=== PATIENT | female | born 1990 | race Caucasian/White ===

== ENCOUNTER 2017-02-06 11:53 | Emergency (ER) | payer OTHER ==
--- NOTE | 2017-02-06 15:39 | ED ORDER SUMMARY ---
..... Patient: VERONICA HILLMAN OrderSheet [facility] VisitID: [id number] [address] [place] [address] 26y, F Registration Date/Time: 02/06/2017 ORDER SHEET Weight: 72.5 kg (stated) Allergies: Penicillins, Sulfa Antibiotics GENERAL ORDERS: CBC w Diff Urgent (12:55 02/06/2017 MWinterer R.N. per protocol) (Ack 12:56 KHoerner) (13:09 KHoerner) CMP Urgent (12:55 02/06/2017 MWinterer R.N. per protocol) (Ack 12:56 KHoerner) (13:09 KHoerner) UA-Culture if indicated Urgent (12:56 02/06/2017 MWinterer R.N. per protocol) (Ack 12:57 KHoerner) (13:36 MWinterer R.N.) Culture, Strep Screen Urgent (13:08 02/06/2017 EKoroleva P.A.-C) (Ack 13:10 KHoerner) (13:36 MWinterer R.N.) Culture, Strep Screen Urgent (13:28 02/06/2017 EKoroleva P.A.-C) (Cancelled: Other13:33 MWinterer R.N.) Monoscreen Urgent (13:28 02/06/2017 EKoroleva P.A.-C) (13:35 KHoerner) PCT (Procalcitonin) Urgent (13:29 02/06/2017 EKoroleva P.A.-C) (13:35 KHoerner) Vitals (14:49 02/06/2017 EKoroleva P.A.-C) (14:58 MWinterer R.N.) MEDICATION ORDERS: Tylenol PO 650 mg (NOW) (13:08 02/06/2017 EKoroleva P.A.-C) (Ack 13:18 JBoardley R.N.) (13:22 JBoardley R.N.) Motrin PO 600 mg (NOW) (13:08 02/06/2017 EKoroleva P.A.-C) (Ack 13:18 Wendie R.N.) (13:22 Wendie R.N.) Dexamethasone PO 6 mg (NOW) (14:49 02/06/2017 José Jauregui) (Ack 14:58 MWinterer R.N.) (15:06 MWinterer R.N.) IV FLUIDS: IV NS : initial bolus 1000 mL (1000 mL/hr), then 10 mL/hr for X1 (NOW); Omar (15:02 02/06/2017 José Jauregui) (15:07 MWinterer R.N.) ORDER SHEET NOTES: [Electronically signed by Farida Good P.A.-C (16:26 02/06/2017)] [Electronically signed by Yahaira Enciso R.N. (17:24 02/06/2017)] [Electronically locked/signed by Yahaira Enciso R.N. (17:24 02/06/2017)]
--- NOTE | 2017-02-06 15:39 | ED NURSING NOTES ---
Clinical Report - Nurses [facility] [address] [place] [address] 02/06/2017 11:53 Patient: VERONICA HILLMAN TRIAGE Acuity: LEVEL 3. Chief Complaint: SORE THROAT and (body aches). Alert. No acute distress. SEPSIS SCREEN: Sepsis Screen. Negative (no infection suspected/documented). --12:10 Yahaira Enciso R.N. 12:05 02/06/17. BP: 127/78. HR: 114. RR: 20. O2 saturation: 100% on room air. Temp: 100.3 F (oral). Pain level now: 05/11. --12:10 Yahaira Enciso R.N. Weight: 72.5 kg stated. Height/Length: 64 inches Per Patient. BMI: 27.5. --12:06 Yahaira Enciso R.N. Medications None. --12:06 Yahaira Enciso R.N. Medication/allergy information source: the patient. --12:10 Yahaira Enciso R.N. Allergies Penicillins.(Anaphylaxis) Sulfa Antibiotics.(Anaphylaxis) --12:06 Yahaira Enciso R.N. History Arrived by private vehicle. Historian: patient. Accompanied by mother. Primary physician (none). Onset. (6 days ago). She has no dental appointment scheduled. Treatment [employer]: Took Tylenol, ibuprofen and Benadryl. SOCIAL HX: Never smoker. History of heavy drug use: methamphetamines, marijuana. Recently used drugs days ago. No alcohol use. FALL RISK ASSESSMENT: Fall risk assessment completed. No fall risk identified. NUTRITIONAL RISK ASSESSMENT: The nutritional risk assessment revealed no deficiencies. FUNCTIONAL ASSESSMENT: Functional assessment: no impairments noted. LEARNING NEEDS ASSESSMENT: The learning needs assessment revealed no barriers. SKIN INTEGRITY ASSESSMENT: Skin integrity risk assessment completed. No skin integrity risk identified. --12:10 Yahaira Enciso R.N. PROBLEMS: Pharyngitis. Strep Throat. Dental Abscess. Dental Pain. Nephrolithiasis. Myofascial Strain. Dental Caries. Dental Trauma. LNMP - Last Normal Menstrual Period. --12: Yahaira Enciso R.N. ADDITIONAL SURGERIES: Appendectomy. . Nephrostomy. --12: Yahaira Enciso R.N. Assessment GENERAL / NEURO / PSYCH: Alert. Oriented X 4. Appears in no acute distress. Stephie Coma Scale: 15- eyes open spontaneously (4); best verbal response- oriented x 4 (5); best motor response- obeys commands (6). Patient appears calm and cooperative. RESPIRATORY: Respirations not labored. CVS: Capillary refill less than 2 seconds. GI / : Abdomen soft. SKIN: Mucous membranes are pink. Skin is warm and dry. --12:10 Yahaira Enciso R.N. Interventions ID band on patient. To treatment room. --12: Yahaira Enciso R.N. PHYSICAL ASSESSMENT 12:02/06/17. Ambulatory to room. GENERAL / NEURO / PSYCH: Alert. Oriented X 4. Appears in no acute distress. HEENT: Pupils equal, round and reactive to light. Voice within normal limits. No dental injury noted. Mucous membranes are pink. RESPIRATORY: Respirations not labored. CVS: Capillary refill less than 2 seconds. SKIN: Skin is warm and dry. --12: Yahaira Enciso R.N. NURSING PROGRESS NOTES 12:02/06/17. Patient gowned. Reassurance given. Two patient identifiers checked. Checked patient name and birthdate. Call light placed in reach. Side rails up x 1. Patient ready for evaluation- ED physician notified. --12: Yahaira Enciso R.N. 12:02/06/2017 Site #1 started via IV in the right antecubital space with an 20g angiocath, with aseptic technique and good blood return; one attempt. Blood drawn: rainbow set and cultures x1. Labeled in the presence of the patient and sent to the lab. Saline lock flushed with 10 mL saline (lactate drawn). --12: Yahaira Enciso R.N. 13:22 02/06/2017 Tylenol (Acetaminophen) PO 650 mg given. Allergies verified and confirmed 5 rights. --13:22 Tito Espinal R.N. 13:02/06/2017 Motrin PO 600 mg given. Confirmed 5 rights. --13:22 Tito Espinal R.N. 15:00 02/06/17. BP: 123/66. HR: 107. RR: 18. O2 saturation: 100%. Temp: 99.1 F (oral). Pain level now: 7/10. --15:01 Yahaira Enciso R.N. 15:06 02/06/2017 Dexamethasone (Dexamethasone) PO 6 mg given. Allergies verified and confirmed 5 rights. --15:06 Yahaira Enciso R.N. 15:07 02/06/2017 Started bag #1 1000 mL IV Fluids IV NS (Saline); at 1000 mL/hr over 1 hour(s) via site #1 via IV pump. Allergies verified and confirmed 5 rights. IV patency established. IV site checked: no pain, redness, or swelling. IV flushed thoroughly pre- and post-medication administration. --15:07 Yahaira Enciso R.N. 16:02/06/2017 Site #1 removed upon discharge. Catheter intact. Manual pressure and bandage applied. --16:15 Yahaira Enciso R.N. 16:13 02/06/2017 IV Fluids IV NS Discontinued: bag #1 infused upon discharge. Total amount infused: 1000 mL. IV patency established. IV site checked: no pain, redness, or swelling. IV flushed thoroughly. --16:13 Yahaira Enciso R.N. DISPOSITION / DISCHARGE Departure time: 16:Feb 06 2017. Condition at departure: improved and stable. No learning barriers present. Discharge instructions provided and reviewed with the patient. Reviewed medication(s) side effects, precautions, dosing and course information. Prescription(s) given to the patient. Patient verbalized understanding. Written instructions provided in Hebrew. The patient was discharged by the physician transportation assistant. She was discharged home and accompanied by parent. She left the Emergency Department ambulatory and via private vehicle. Parent driving. --17:21 Yahaira Enciso R.N. 17:19 02/06/17. BP: 122/77. HR: 97. RR: 18. O2 saturation: 100%. Temp: 98.3 F (oral). Pain level now: 0/10. --17:21 Yahaira Enciso R.N. Locked/Released at 02/06/2017 17:24 by Yahaira Enciso R.N.
--- NOTE | 2017-02-06 15:39 | ED NURSING NOTES ---
Clinical Report - Nurses [facility] [address] [place] [address] 02/06/2017 11:53 Patient: VERONICA HILLMAN TRIAGE Acuity: LEVEL 3. Chief Complaint: SORE THROAT and (body aches). Alert. No acute distress. SEPSIS SCREEN: Sepsis Screen. Negative (no infection suspected/documented). --12:10 Yahaira Enciso R.N. 12:05 02/06/17. BP: 127/78. HR: 114. RR: 20. O2 saturation: 100% on room air. Temp: 100.3 F (oral). Pain level now: 05/11. --12:10 Yahaira Enciso R.N. Weight: 72.5 kg stated. Height/Length: 64 inches Per Patient. BMI: 27.5. --12:06 Yahaira Enciso R.N. Medications None. --12:06 Yahaira Enciso R.N. Medication/allergy information source: the patient. --12:10 Yahaira Enciso R.N. Allergies Penicillins.(Anaphylaxis) Sulfa Antibiotics.(Anaphylaxis) --12:06 Yahaira Enciso R.N. History Arrived by private vehicle. Historian: patient. Accompanied by mother. Primary physician (none). Onset. (6 days ago). She has no dental appointment scheduled. Treatment [employer]: Took Tylenol, ibuprofen and Benadryl. SOCIAL HX: Never smoker. History of heavy drug use: methamphetamines, marijuana. Recently used drugs days ago. No alcohol use. FALL RISK ASSESSMENT: Fall risk assessment completed. No fall risk identified. NUTRITIONAL RISK ASSESSMENT: The nutritional risk assessment revealed no deficiencies. FUNCTIONAL ASSESSMENT: Functional assessment: no impairments noted. LEARNING NEEDS ASSESSMENT: The learning needs assessment revealed no barriers. SKIN INTEGRITY ASSESSMENT: Skin integrity risk assessment completed. No skin integrity risk identified. --12:10 Yahaira Enciso R.N. PROBLEMS: Pharyngitis. Strep Throat. Dental Abscess. Dental Pain. Nephrolithiasis. Myofascial Strain. Dental Caries. Dental Trauma. LNMP - Last Normal Menstrual Period. --12: Yahaira Enciso R.N. ADDITIONAL SURGERIES: Appendectomy. . Nephrostomy. --12: Yahaira Enciso R.N. Assessment GENERAL / NEURO / PSYCH: Alert. Oriented X 4. Appears in no acute distress. Stephie Coma Scale: 15- eyes open spontaneously (4); best verbal response- oriented x 4 (5); best motor response- obeys commands (6). Patient appears calm and cooperative. RESPIRATORY: Respirations not labored. CVS: Capillary refill less than 2 seconds. GI / : Abdomen soft. SKIN: Mucous membranes are pink. Skin is warm and dry. --12:10 Yahaira Enciso R.N. Interventions ID band on patient. To treatment room. --12: Yahaira Enciso R.N. PHYSICAL ASSESSMENT 12:02/06/17. Ambulatory to room. GENERAL / NEURO / PSYCH: Alert. Oriented X 4. Appears in no acute distress. HEENT: Pupils equal, round and reactive to light. Voice within normal limits. No dental injury noted. Mucous membranes are pink. RESPIRATORY: Respirations not labored. CVS: Capillary refill less than 2 seconds. SKIN: Skin is warm and dry. --12: Yahaira Enciso R.N. NURSING PROGRESS NOTES 12:02/06/17. Patient gowned. Reassurance given. Two patient identifiers checked. Checked patient name and birthdate. Call light placed in reach. Side rails up x 1. Patient ready for evaluation- ED physician notified. --12: Yahaira Enciso R.N. 12:02/06/2017 Site #1 started via IV in the right antecubital space with an 20g angiocath, with aseptic technique and good blood return; one attempt. Blood drawn: rainbow set and cultures x1. Labeled in the presence of the patient and sent to the lab. Saline lock flushed with 10 mL saline (lactate drawn). --12: Yahaira Enciso R.N. 13:22 02/06/2017 Tylenol (Acetaminophen) PO 650 mg given. Allergies verified and confirmed 5 rights. --13:22 Tito Espinal R.N. 13:02/06/2017 Motrin PO 600 mg given. Confirmed 5 rights. --13:22 Tito Espinal R.N. 15:00 02/06/17. BP: 123/66. HR: 107. RR: 18. O2 saturation: 100%. Temp: 99.1 F (oral). Pain level now: 7/10. --15:01 Yahaira Enciso R.N. 15:06 02/06/2017 Dexamethasone (Dexamethasone) PO 6 mg given. Allergies verified and confirmed 5 rights. --15:06 Yahaira Enciso R.N. 15:07 02/06/2017 Started bag #1 1000 mL IV Fluids IV NS (Saline); at 1000 mL/hr over 1 hour(s) via site #1 via IV pump. Allergies verified and confirmed 5 rights. IV patency established. IV site checked: no pain, redness, or swelling. IV flushed thoroughly pre- and post-medication administration. --15:07 Yahaira Enciso R.N. 16:02/06/2017 Site #1 removed upon discharge. Catheter intact. Manual pressure and bandage applied. --16:15 Yahaira Enciso R.N. 16:13 02/06/2017 IV Fluids IV NS Discontinued: bag #1 infused upon discharge. Total amount infused: 1000 mL. IV patency established. IV site checked: no pain, redness, or swelling. IV flushed thoroughly. --16:13 Yahaira Enciso R.N. DISPOSITION / DISCHARGE Departure time: 16:Feb 06 2017. Condition at departure: improved and stable. No learning barriers present. Discharge instructions provided and reviewed with the patient. Reviewed medication(s) side effects, precautions, dosing and course information. Prescription(s) given to the patient. Patient verbalized understanding. Written instructions provided in Yakut. The patient was discharged by the physician retail assistant manager. She was discharged home and accompanied by parent. She left the Emergency Department ambulatory and via private vehicle. Parent driving. --17:21 Yahaira Enciso R.N. 17:19 02/06/17. BP: 122/77. HR: 97. RR: 18. O2 saturation: 100%. Temp: 98.3 F (oral). Pain level now: 0/10. --17:21 Yahaira Enciso R.N. Locked/Released at 02/06/2017 17:24 by Yahaira Enciso R.N.
--- NOTE | 2017-02-06 15:39 | ED ORDER SUMMARY ---
..... Patient: VERONICA HILLMAN OrderSheet [facility] VisitID: [id number] [address] [place] [address] 26y, F Registration Date/Time: 02/06/2017 ORDER SHEET Weight: 72.5 kg (stated) Allergies: Penicillins, Sulfa Antibiotics GENERAL ORDERS: CBC w Diff Urgent (12:55 02/06/2017 MWinterer R.N. per protocol) (Ack 12:56 KHoerner) (13:09 KHoerner) CMP Urgent (12:55 02/06/2017 MWinterer R.N. per protocol) (Ack 12:56 KHoerner) (13:09 KHoerner) UA-Culture if indicated Urgent (12:56 02/06/2017 MWinterer R.N. per protocol) (Ack 12:57 KHoerner) (13:36 MWinterer R.N.) Culture, Strep Screen Urgent (13:08 02/06/2017 EKoroleva P.A.-C) (Ack 13:10 KHoerner) (13:36 MWinterer R.N.) Culture, Strep Screen Urgent (13:28 02/06/2017 EKoroleva P.A.-C) (Cancelled: Other13:33 MWinterer R.N.) Monoscreen Urgent (13:28 02/06/2017 EKoroleva P.A.-C) (13:35 KHoerner) PCT (Procalcitonin) Urgent (13:29 02/06/2017 EKoroleva P.A.-C) (13:35 KHoerner) Vitals (14:49 02/06/2017 EKoroleva P.A.-C) (14:58 MWinterer R.N.) MEDICATION ORDERS: Tylenol PO 650 mg (NOW) (13:08 02/06/2017 EKoroleva P.A.-C) (Ack 13:18 JBoardley R.N.) (13:22 JBoardley R.N.) Motrin PO 600 mg (NOW) (13:08 02/06/2017 EKoroleva P.A.-C) (Ack 13:18 Wendie R.N.) (13:22 Wendie R.N.) Dexamethasone PO 6 mg (NOW) (14:49 02/06/2017 José Jauregui) (Ack 14:58 MWinterer R.N.) (15:06 MWinterer R.N.) IV FLUIDS: IV NS : initial bolus 1000 mL (1000 mL/hr), then 10 mL/hr for X1 (NOW); Omar (15:02 02/06/2017 José Jauregui) (15:07 MWinterer R.N.) ORDER SHEET NOTES: [Electronically signed by Farida Good P.A.-C (16:26 02/06/2017)] [Electronically signed by Yahaira Enciso R.N. (17:24 02/06/2017)] [Electronically locked/signed by Yahaira Enciso R.N. (17:24 02/06/2017)]
--- NOTE | 2017-02-06 15:39 | ED CLINICAL REPORT ---
Clinical Report - Physicians/Mid Levels [facility] [address] [place] [address] 02/06/2017 11:53 Patient: VERONICA HILLMAN Time Seen: 13:29 Feb 06 2017. Arrived- By private vehicle. Historian- patient. HISTORY OF PRESENT ILLNESS Chief Complaint: SORE THROAT. This started just prior to arrival and is still present. Pain described as mild. The patient has had a sore throat. (ore throat over the last 3 days with associated fevers and chills, patient home has been taking Benadryl, Tylenol and Motrin. No sick contacts. Denies any sick contacts with mono. Patient denies smoking. Patient denies hemoptysis. Denies any recent foreign travel. Patient denies cough.). Similar symptoms previously: REVIEW OF SYSTEMS No fever, cough, difficulty breathing, diarrhea or headache. No enlarged lymph nodes. All systems otherwise negative, except as recorded above. PAST HISTORY Problems: Pharyngitis. Strep Throat. Dental Abscess. Dental Pain. Nephrolithiasis. Myofascial Strain. Dental Caries. Dental Trauma. LNMP - Last Normal Menstrual Period. Additional Surgeries: Appendectomy. . Nephrostomy. Medications: None. Allergies: Penicillins.(Anaphylaxis) Sulfa Antibiotics.(Anaphylaxis). SOCIAL HISTORY Never smoker. History of drug use: cocaine, methamphetamines. ADDITIONAL NOTES The nursing notes have been reviewed. PHYSICAL EXAM Vital Signs: 02/06/2017 12:05 BP: 127/78. HR: 114. RR: 20. O2 saturation: 100%. Temp: 100.3 F. Pain level now: 8/10. Appearance: Alert. Head: Normal external inspection. ENT: Nose normal. Pharynx normal. Lips normal. No trismus present. Uvula midline. No tonsillar exudate or peritonsillar mass. Neck: Mild left anterior neck and mild left posterior neck lymphadenopathy present. No adenopathy. CVS: Normal heart rate and rhythm. Heart sounds normal. Skin: No rash. LABS, X-RAYS, AND EKG Laboratory Tests: UA-Culture if indicated: (JENA: 02/06/2017 13:30) ( [facility] 02/06/2017 14:09) Final results Test Result Flag Units (Reference) URINE COLOR YELLOW URINE APPEARANCE CLEAR URINE GLUCOSE NEGATIVE (NEGATIVE) URINE BILIRUBIN NEGATIVE (NEGATIVE) URINE KETONE NEGATIVE (NEGATIVE) URINE SPECIFIC GRAVITY 1.015 (1.010-1.030) URINE PH 7.5 (5.0-8.0) URINE PROTEIN NEGATIVE (NEGATIVE) URINE UROBILINOGEN 1.0 EU/dL (0.2-1.0) URINE NITRITE NEGATIVE (NEGATIVE) URINE BLOOD NEGATIVE (NEGATIVE) URINE LEUK ESTERASE NEGATIVE (NEGATIVE) URINE RBC 0-1 rbc/hpf (0-1) URINE WBC 5-10 wbc/hpf (0-1) URINE EPITHELIAL CELLS 0-1 EPI/hpf (0-5) URINE BACTERIA FEW (1+) (NONE SEEN) URINE COMMENT CULT NOT INDICATED URINE CULTURES ARE SET-UP BASED ON THE FOLLOWING CRITERIA:POSITIVE NITRITEPOSITIVE LEUKOCYTE ESTERASEGREATER THAN 10 WHITE BLOOD CELLSMODERATE (2+) OR GREATER BACTERIA Monoscreen: (JENA: 02/06/2017 12:23) ( [facility] 02/06/2017 14:19) Final results Test Result Flag Units (Reference) MONOSCREEN NEGATIVE (NEGATIVE) CBC w Diff: (JENA: 02/06/2017 12:23) ( [facility] 02/06/2017 13:16) Final results Test Result Flag Units (Reference) WHITE BLOOD COUNT 9.2 K/uL (4.5-11.5) RED BLOOD COUNT 4.34 M/uL (4.00-5.20) HEMOGLOBIN 12.5 gm/dL (12.0-16.0) HEMATOCRIT 37.6 % (36.0-46.0) MEAN CELL VOLUME 87 fL (80-100) MEAN CORPUSCULAR HGB 29 pg (26-34) MEAN CORPUSCULAR HGB CONC 33 g/dL (31-37) RED CELL DISTRIBUTION WIDTH 12.6 % (11.6-14.8) PLATELET COUNT 249 K/uL (150-400) NEUTROPHIL % 79.8 H % (50-75) LYMPH % 12.1 L % (25-40) MONO % 7.9 % (3-14) EOSINOPHIL % 0.1 % (0-4) BASOPHIL % 0.1 % (0-2) [id number]: (JENA: 02/06/2017 12:23) ( MsgRcvd 02/06/2017 14:43) Final results Test Result Flag Units (Reference) PROCALCITONIN <0.5 ng/mL (0-0.5) PCT Concentration: Interpretation : Risk/option for action PCT <=0.5 ng/mL : Systemic : Low risk forinfection(sepsis): progression to severeis not likely. : systemic infection.Local bacterial : CAUTION-PCT levelsinfection is : below 0.5 ng/mL do notpossible. : exclude an infection,because localizedinfections (withoutsystemic signs) may beassociated with suchlow levels. If PCT ismeasured very earlyafter a bacterialchallenge (usually <6hours), these valuesmay still be low. Inthis case PCT shouldbe re-assessed 6-24hours later. PCT >0.5 and : Systemic infection: Moderate risk for<= 2 ng/mL : (sepsis) is : progression to severepossible, but : systemic infection.other conditions : The patient should beare known to : closely monitoredelevate PCT. : both clinically andby re-assessing PCTwithin 6-24 hours. PCT > 2 ng/mL : Systemic infection: High risk for(sepsis) is likely: progression to severeunless other : systemic infection.causes are known. : PCT >= 10 ng/mL : Important systemic: High likelihood ofinflammatory : severe sepsis orresponse, almost : septic shock.exclusively due to:severe bacterial :sepsis or septic :shock. : CMP: (JENA: 02/06/2017 12:23) ( MsgRcvd 02/06/2017 13:20) Final results Test Result Flag Units (Reference) GLUCOSE 104 mg/dL (70-110) BUN 7 mg/dL (7-18) CREATININE 0.7 mg/dL (0.6-1.3) Estimated GFR >60 mL/min Estimated GFR- >60 mL/min Note: Persistent reduction over 3 months in eGFR<60 mL/min/1.73 m2 defines CKD. Patients with eGFR values>=60 mL/min/1.73 m2 may also have CKD if evidence ofpersistent proteinuria. Additional information may be foundat www.kidney.org. SODIUM 136 mmol/L (136-145) POTASSIUM 3.9 mmol/L (3.5-5.1) CHLORIDE 100 mmol/L (98-107) CARBON DIOXIDE 25 mmol/L (21-32) CALCIUM 8.1 L mg/dL (8.5-10.1) TOTAL PROTEIN 7.4 g/dL (6.4-8.2) ALBUMIN 3.0 L g/dL (3.3-5.0) BILIRUBIN, TOTAL 0.3 mg/dL (0.0-1.0) ALKALINE PHOSPHATASE 128 H U/L (46-116) AST (SGOT) 49 H U/L (15-37) ALT (SGPT) 92 H U/L (12-78) Culture, Strep Screen: (JENA: 02/06/2017 13:30) ( MsgRcvd 02/06/2017 14:00) Final results Test Result Flag Units (Reference) RAPID STREP SCREEN - THROAT DATE: 02/06/17 NEGATIVE SCREEN: RAPID STREP SCREEN NEGATIVE; CONFIRMATION TO FOLLOW . PROGRESS AND PROCEDURES Course of Care: Patient here in the ER with negative lab workup. Afebrile now, given IV hydration. Sore throat with no signs of rapid strep pharyngitis or signs of mono. Patient with no shortness of breath or chest pain. Very stable. We'll culture. Patient with history of similar, presumed viral etiology, however culture pending. 02/06/2017 15:00 BP: 123/66. HR: 107. RR: 18. O2 saturation: 100%. Temp: 99.1 F. Pain level now: 04/10. Patient is stable. Symptoms better. Patient/family counseled. Disposition: Discharged. CLINICAL IMPRESSION Acute pharyngitis INSTRUCTIONS Drink plenty of fluids. (await for STREP FURTHER CULTURE). Prescription Medications: Hydrocodone/APAP 5mg / 325mg: take 1 orally every 8 hours as needed for pain. Dispense five (5). No refill. Ibuprofen 800 mg tablets: take 1 tablet orally every 8 hours for 5 days, as needed for pain. Dispense fifteen (15). No refill. Follow-up: Follow up with your doctor in three. (Electronically signed by Farida Good P.A.-C 02/06/2017 16:26)
--- NOTE | 2017-02-06 17:25 | ED MAR SUMMARY ---
..... Medication Administration Record [facility] [address] [place] [address] Patient: VERONICA HILLMAN Visit ID: [id number] 26y, F Weight: 72.5 kg Height/Length: 64 in BMI: 27.5 ALLERGIES: Penicillins, Sulfa Antibiotics Given 13:22 02/06/2017 Tito Espinal R.N. Medication Administered: TYLENOL [PO] (ACETAMINOPHEN), Dose: 650 mg PO. Medication Ordered: Tylenol PO 650 mg (NOW). Given 13:22 02/06/2017 Tito Espinal R.N. Medication Administered: MOTRIN [PO], Dose: 600 mg PO. Medication Ordered: Motrin PO 600 mg (NOW). Given 15:06 02/06/2017 Yahaira Enciso R.N. Medication Administered: DEXAMETHASONE [PO] (DEXAMETHASONE), Dose: 6 mg PO. Medication Ordered: Dexamethasone PO 6 mg (NOW). Start 15:07 02/06/2017 Yahaira Enciso R.N., Stop 16:13 02/06/2017 Yahaira Enciso R.N. Medication Administered: IV NS (SALINE), Dose: IV Fluids over 1 hour(s), Rate: 1000 mL/hr, Dispensed: 1000 mL bag, Site: #1 right . Medication Ordered: IV NS : initial bolus 1000 mL (1000 mL/hr), then 10 mL/hr for X1 (NOW); Omar.
--- NOTE | 2017-02-06 17:25 | ED MED RECONCILIATION SUMMARY ---
Patient: VERONICA HILLMAN Medication Reconciliation Report [facility] VisitID: [id number] [address] [place] [address] 26y, F Registration Date/Time: 02/06/2017 Weight: 72.5 kg Height/Length: 64 in. BMI: 27.5 ALLERGIES: Penicillins, Sulfa Antibiotics The patient's Home Medications are listed below: NONE. The source(s) of the original Home Medication information: patient The following Medications were given to the patient in the Emergency Department: Tylenol [PO] PO 650 mg, administered: 02/06/2017 1:22:00 PM Motrin [PO] PO 600 mg, administered: 02/06/2017 1:22:00 PM Dexamethasone [PO] PO 6 mg, administered: 02/06/2017 3:06:00 PM IV NS IV Fluids bolus 0, then 1000 mL/hr, administered: 02/06/2017 3:07:00 PM The following Medications were prescribed to the patient: Hydrocodone/APAP 5mg / 325mg: take 1 orally every 8 hours as needed for pain. Dispense five (5). No refill. -- JenniferoleFarida cotton, P.A.-C Ibuprofen 800 mg tablets: take 1 tablet orally every 8 hours for 5 days, as needed for pain. Dispense fifteen (15). No refill. -- Farida Good, P.A.-C
--- NOTE | 2017-02-06 17:25 | ED MAR SUMMARY ---
..... Medication Administration Record [facility] [address] [place] [address] Patient: VERONICA HILLMAN Visit ID: [id number] 26y, F Weight: 72.5 kg Height/Length: 64 in BMI: 27.5 ALLERGIES: Penicillins, Sulfa Antibiotics Given 13:22 02/06/2017 Tito Espinal R.N. Medication Administered: TYLENOL [PO] (ACETAMINOPHEN), Dose: 650 mg PO. Medication Ordered: Tylenol PO 650 mg (NOW). Given 13:22 02/06/2017 Tito Espinal R.N. Medication Administered: MOTRIN [PO], Dose: 600 mg PO. Medication Ordered: Motrin PO 600 mg (NOW). Given 15:06 02/06/2017 Yahaira Enciso R.N. Medication Administered: DEXAMETHASONE [PO] (DEXAMETHASONE), Dose: 6 mg PO. Medication Ordered: Dexamethasone PO 6 mg (NOW). Start 15:07 02/06/2017 Yahaira Enciso R.N., Stop 16:13 02/06/2017 Yahaira Enciso R.N. Medication Administered: IV NS (SALINE), Dose: IV Fluids over 1 hour(s), Rate: 1000 mL/hr, Dispensed: 1000 mL bag, Site: #1 right . Medication Ordered: IV NS : initial bolus 1000 mL (1000 mL/hr), then 10 mL/hr for X1 (NOW); Omar.
--- NOTE | 2017-02-06 17:25 | ED DISCHARGE INSTRUCTIONS ---
Patient: VERONICA HILLMAN General Instructions [facility] VisitID: [id number] [place] [address] 26y, F Registration Date/Time: 02/06/2017 Acute pharyngitis INSTRUCTIONS Drink plenty of fluids. (await for STREP FURTHER CULTURE). Prescription Medications: Hydrocodone/APAP 5mg / 325mg: take 1 orally every 8 hours as needed for pain. Dispense five (5). No refill. Ibuprofen 800 mg tablets: take 1 tablet orally every 8 hours for 5 days, as needed for pain. Dispense fifteen (15). No refill. Follow-up: Follow up with your doctor in three. ADDITIONAL INFORMATION Viral Pharyngitis (Sore Throat) Your throat pain is due to an infection called "Viral Pharyngitis", commonly known as "Sore Throat". This is a contagious illness. It is spread through the air by coughing, kissing or by touching others after touching your mouth or nose. Symptoms include throat pain worse with swallowing, aching all over, headache and fever. Unlike strep throat, which is a bacterial infection, this illness does not require treatment with an antibiotic. Home Care: If your symptoms are severe, rest at home for the first 2-3 days. Children: Use acetaminophen (Tylenol) for fever, fussiness or discomfort. In infants over six months of age, you may use ibuprofen (Children's Motrin) instead of Tylenol. [NOTE: If your child has chronic liver or kidney disease or ever had a stomach ulcer or GI bleeding, talk with your renetta doctor before using these medicines.] (Aspirin should never be used in anyone under 18 years of age who is ill with a fever. It may cause severe liver damage.) Adults: You may use acetaminophen (Tylenol) or ibuprofen (Motrin, Advil) to control pain or fever, unless another medicine was prescribed. [NOTE: If you have chronic liver or kidney disease or ever had a stomach ulcer or GI bleeding, talk with your doctor before using these medicines.] Throat lozenges or sprays (Chloraseptic and others) will reduce pain. Gargling with warm salt water will also reduce throat pain. Dissolve 1/2 teaspoon of salt in 1 glass of warm water. This is especially useful just before meals. Follow Up with your doctor or as directed by our staff if you are not improving over the next week. Get Prompt Medical Attention if any of the following occur: Fever over 100.5F (38.0C) oral, or over 101.5F (38.6C) rectal for more than three days New or worsening ear pain, sinus pain or headache Painful lumps in the back of your neck Unable to swallow liquids or open your mouth wide due to throat pain Trouble breathing or noisy breathing Muffled voice New rash Shelby Diet A bland diet is used for patients with an upset stomach. It consists of foods that are mild and easy to digest. It is better to eat small frequent meals rather than three large meals a day. BEVERAGES OK: Fruit juices, non-caffeinated teas and coffee, non-carbonated fine AVOID: Carbonated beverage, caffeinated tea and coffee, all alcoholic beverages BREAD OK: Refined white, wheat or rye bread, tavares or soda crackers, [place] toast, plain rolls, bagels AVOID: Whole-grain bread CEREAL OK: Refined cereals: cooked or ready to eat AVOID: Whole grain cereals and granola, or those containing bran, seeds or nuts DESSERTS OK: Peanut butter and all others except those to "avoid" AVOID: Chocolate, cocoa, coconut, popcorn, nuts, seeds, jam, marmalade FRUITS OK: Canned, cooked, frozen or fresh fruits without seeds or tough skin AVOID: Olives, skin and seeds of fruit MEATS OK: All fresh or preserved meat, fish and fowl AVOID: Any that are prepared with those spices to "avoid" CHEESE & EGGS OK: Eggs, cottage cheese, cream cheese, other cheeses AVOID: All cheeses made with those spices to "avoid" POTATOES & PASTA OK: Potato, rice, macaroni, noodles, spaghetti AVOID: None SOUPS OK: All soups without heavy seasoning AVOID: Soups made with those spices to "avoid" VEGETABLES OK: Canned, cooked, fresh or frozen mildly flavored vegetables without seeds, skins or coarse fiber AVOID: Vegetables prepared with those spices to "avoid"; skin and seeds of vegetables and those with coarse fiber SPICES OK: Salt, lemon and [place] juice, vinegar, all extracts, grant, cinnamon, thyme, mace, allspice, paprika AVOID: [place] powder, cloves, pepper, seed spices, garlic, gravy pickles, highly seasoned salad dressings Clear Liquid Diet Clear liquids are any liquid that you can see through as well as those that are very easy to digest. This is used while the body is recovering from irritation or infection of the stomach or intestinal tract. It may also be used before special procedures or surgery. This diet is to be used no more than three days. You may include the following items. Adults Adults should drink a total of 23 quarts of liquid per day. It may be easier to drink small frequent servings rather than a few large ones. Liquids can include: Fruit juices.Strained orange juice or lemonade (no pulp), apple, grape and cranberry juice, clear fruit drinks, sports drinks Beverages.Sport drinks, sodas, mineral water (plain or flavored), tea, black coffee, liquid gelatin (add twice the recommended amount of water) Soups.Clear broth, consomm, bouillon Desserts.Plain gelatin, popsicles, fruit juice bars Children Over 2 years old The following liquids are acceptable for children over age 2: Fruit juices.Strained orange juice or lemonade (no pulp), apple, grape and cranberry juice, clear fruit drinks Beverages. Sports drinks, sodas, mineral water (plain or flavored), tea, liquid gelatin (add twice the recommended amount of water) Soups. Clear broth, consomm, bouillon Desserts. Plain gelatin, popsicles, fruit juice bars Children under 2 years old Oral rehydration fluids such are available at drug stores and most grocery stores without a prescription. Hydrocodone Bitartrate, Acetaminophen Oral tablet What is this medicine? ACETAMINOPHEN; HYDROCODONE (a set a ALIVIA aleida fen; kaiser droe KOE done) is a pain reliever. It is used to treat mild to moderate pain. How should I use this medicine? Take this medicine by mouth. Swallow it with a full glass of water. Follow the directions on the prescription label. If the medicine upsets your stomach, take the medicine with food or milk. Do not take more than you are told to take. Talk to your gin clerk regarding the use of this medicine in children. This medicine is not approved for use in children. What side effects may I notice from receiving this medicine? Side effects that you should report to your doctor or health child adolescent care as soon as possible: allergic reactions like skin rash, itching or hives, swelling of the face, lips, or tongue breathing problems confusion feeling faint or lightheaded, falls stomach pain yellowing of the eyes or skin Side effects that usually do not require medical attention (report to your doctor or health child adolescent care if they continue or are bothersome): nausea, vomiting stomach upset What may interact with this medicine? alcohol antihistamines isoniazid medicines for depression, anxiety, or psychotic disturbances medicines for sleep muscle relaxants naltrexone narcotic medicines (opiates) for pain phenobarbital ritonavir tramadol What if I miss a dose? If you miss a dose, take it as soon as you can. If it is almost time for your next dose, take only that dose. Do not take double or extra doses. Where should I keep my medicine? Keep out of the reach of children. This medicine can be abused. Keep your medicine in a safe place to protect it from theft. Do not share this medicine with anyone. Selling or giving away this medicine is dangerous and against the law. Store at room temperature between 15 and 30 degrees C (59 and 86 degrees F). Protect from light. Keep container tightly closed. Throw away any unused medicine after the expiration date. Discard unused medicine and used packaging carefully. Pets and children can be harmed if they find used or lost packages. What should I tell my health care provider before I take this medicine? They need to know if you have any of these conditions: brain tumor Crohn's disease, inflammatory bowel disease, or ulcerative colitis drink more than 3 alcohol-containing drinks per day drug abuse or addiction head injury heart or circulation problems kidney disease or problems going to the bathroom liver disease lung disease, asthma, or breathing problems an unusual or allergic reaction to acetaminophen, hydrocodone, other opioid analgesics, other medicines, foods, dyes, or preservatives or trying to get breast-feeding What should I watch for while using this medicine? Tell your doctor or health child adolescent care if your pain does not go away, if it gets worse, or if you have new or a different type of pain. You may develop tolerance to the medicine. Tolerance means that you will need a higher dose of the medicine for pain relief. Tolerance is normal and is expected if you take the medicine for a long time. Do not suddenly stop taking your medicine because you may develop a severe reaction. Your body becomes used to the medicine. This does NOT mean you are addicted. Addiction is a behavior related to getting and using a drug for a non-medical reason. If you have pain, you have a medical reason to take pain medicine. Your doctor will tell you how much medicine to take. If your doctor wants you to stop the medicine, the dose will be slowly lowered over time to avoid any side effects. You may get drowsy or dizzy when you first start taking the medicine or change doses. Do not drive, use machinery, or do anything that may be dangerous until you know how the medicine affects you. Stand or sit up slowly. There are different types of narcotic medicines (opiates) for pain. If you take more than one type at the same time, you may have more side effects. Give your health care provider a list of all medicines you use. Your doctor will tell you how much medicine to take. Do not take more medicine than directed. Call emergency for help if you have problems breathing. The medicine will cause constipation. Try to have a bowel movement at least every 2 to 3 days. If you do not have a bowel movement for 3 days, call your doctor or health child adolescent care. Too much acetaminophen can be very dangerous. Do not take Tylenol (acetaminophen) or medicines that contain acetaminophen with this medicine. Many non-prescription medicines contain acetaminophen. Always read the labels carefully. You have been given the following additional information: Pharyngitis, Viral Diet, Shelby (Adult) Diet, Clear Liquid Hydrocodone Bitartrate, Acetaminophen Oral tablet (Electronically signed by Farida Good P.A.-C 02/06/2017 16:26)
--- NOTE | 2017-02-06 17:25 | ED MED RECONCILIATION SUMMARY ---
Patient: VERONICA HILLMAN Medication Reconciliation Report [facility] VisitID: [id number] [address] [place] [address] 26y, F Registration Date/Time: 02/06/2017 Weight: 72.5 kg Height/Length: 64 in. BMI: 27.5 ALLERGIES: Penicillins, Sulfa Antibiotics The patient's Home Medications are listed below: NONE. The source(s) of the original Home Medication information: patient The following Medications were given to the patient in the Emergency Department: Tylenol [PO] PO 650 mg, administered: 02/06/2017 1:22:00 PM Motrin [PO] PO 600 mg, administered: 02/06/2017 1:22:00 PM Dexamethasone [PO] PO 6 mg, administered: 02/06/2017 3:06:00 PM IV NS IV Fluids bolus 0, then 1000 mL/hr, administered: 02/06/2017 3:07:00 PM The following Medications were prescribed to the patient: Hydrocodone/APAP 5mg / 325mg: take 1 orally every 8 hours as needed for pain. Dispense five (5). No refill. -- JenniferoleFarida cotton, P.A.-C Ibuprofen 800 mg tablets: take 1 tablet orally every 8 hours for 5 days, as needed for pain. Dispense fifteen (15). No refill. -- Farida Good, P.A.-C
== END 2017-02-06 16:10 | disposition home or self-care (01) ==
LOC: ED SRH 11:53
DX: J02.9 Acute pharyngitis, unspecified (principal); Z88.0 Allergy status to penicillin; Z88.1 Allergy status to other antibiotic agents
CPT/HCPCS: 90004; 90100; 90154; 90159; 93004; 95059; 98370